=== PATIENT | female | born 1995 | race Caucasian/White ===

== ENCOUNTER 2016-10-09 18:36 | Emergency (ER) | payer OTHER ==
[2016-10-09 20:37] LABS: HEMOGLOBIN 14.4 gm/dl (12.3-15.3); RED BLOOD COUNT 4.77 M/UL (4.00-5.10)
[2016-10-09 20:53] LABS: BUN/CREATININE RATIO 11 (0-10)
== END 2016-10-09 23:10 | disposition home or self-care (01) ==
LOC: ER1 18:36
PROVIDERS: Emergency Medicine
DX: O99.89 Other specified diseases and conditions complicating pregnancy, childbirth and the puerperium (principal); R55 Syncope and collapse; R10.2 Pelvic and perineal pain; Z3A.00 Weeks of gestation of pregnancy not specified
CPT/HCPCS: 36415; 76830; 80053; 81001; 83690; 84702; 84703; 85025; 86900; 86901; 87086; 96360; 99284; J7030